=== PATIENT | female | born 1990 | race Caucasian/White ===

== ENCOUNTER 2022-05-30 21:22 | Emergency (ER) | payer MEDICAID ==
[~2022-05-30] VITALS: Ht 152.4 cm; Wt 51.5 kg
[2022-05-30 21:36] VITALS: BP 123/82
== END 2022-05-30 22:50 | disposition left against medical advice (07) ==
LOC: ER 21:22
DX: Z53.21 Procedure and treatment not carried out due to patient leaving prior to being seen by health care provider (principal)